=== PATIENT | male | born 1995 ===

== ENCOUNTER 2018-07-18 14:59 | Emergency (ER) | payer SELFPAY ==
[2018-07-18] MEDS ORDERED: KETOROLAC 30 MG/ML INJ ONE (16:06)
--- NOTE | 2018-07-18 16:47 | RAD REPORT ---
EXAM DESCRIPTION: Ribs Right - 07/18/2018 4:15 pm CLINICAL HISTORY: Blunt force trauma, right-sided rib pain COMPARISON: None. FINDINGS: No displaced rib fracture is evident. No nondisplaced rib fractures confirmed. No aggressi ve rib lesion. No underlying pneumothorax, effusion, infiltrate or pulmonary contusion. IMPRESSION: Negative right rib series.
--- NOTE | 2018-07-18 17:32 | ER ---
Nurse's Notes [facility] Name: Brody Cohn Age: 22 yrs Sex: Male : 1995 Arrival Date: 07/18/2018 Time: 15:02 Bed 14 Private MD: Diagnosis: Contusion of right front wall of thorax Presentation: 07/18 15:27 Presenting complaint: Patient states: "I went to go hop on the tailgate of a truck and aj1 I didn't make it and I fell onto my right side on my ribs" Reports that the truck was not moving, reports that he was running and went to jump and missed. Respirations even and unlabored, no distress noted. Transition of care: patient was not received from another setting of care. Onset of symptoms was July 18, 2018 at 15:00. Risk Assessment: Do you want to hurt yourself or someone else? Patient reports no desire to harm self or others. Initial Sepsis Screen: Does the patient meet any 2 criteria? No. Patient's initial sepsis screen is negative. Does the patient have a suspected source of infection? No. Patient's initial sepsis screen is negative. Care prior to arrival: None. 15:27 Method Of Arrival: Ambulatory aj1 15:27 Acuity: DAYDAY 4 aj1 Triage Assessment: 15:28 General: Appears in no apparent distress. comfortable, Behavior is calm, cooperative, aj1 appropriate for age. Pain: Complains of pain in right lateral anterior chest Pain currently is 5 out of 10 on a pain scale. Aggravated by deep breathing, moving. Neuro: Level of Consciousness is awake, alert, obeys commands, Oriented to person, place, time, situation. Cardiovascular: Patient's skin is warm and dry. Respiratory: Airway is patent Respiratory effort is even, unlabored, Respiratory pattern is regular, symmetrical. Historical: - Allergies: 15:28 No Known Allergies; aj1 - Home Meds: 15:28 None [Active]; aj1 - PMHx: 15:28 None; aj1 - PSHx: 15:28 None; aj1 - Immunization history:: Flu vaccine is not up to date. - Social history:: Smoking status: Patient uses tobacco products, smokes one pack cigarettes per day. - Ebola Screening: : Patient denies travel to an Ebola-affected area in the 21 days before illness onset. Screenin:35 Nutritional screening: No deficits noted. Tuberculosis screening: No symptoms or risk rb1 factors identified. Fall Risk Fall in past 12 months (25 points). No secondary diagnosis (0 pts). No IV (0 pts). Ambulatory Aid- None/Bed Rest/Nurse Assist (0 pts). Gait- Normal/Bed Rest/Wheelchair (0 pts) Mental Status- Oriented to own ability (0 pts). Total Nugent Fall Scale indicates Low Risk Score (25-44 pts). Fall prevention measures have been instituted. Side Rails Up X 2 Placed close to Nursing Station 1:1 attendant Assigned to Pt. Frequent Obs/Assesments occuring As available Patient and Family Educated on Fall Prevention Program and strategies. 15:35 Abuse screen: Denies threats or abuse. rb1 Assessment: 15:35 General: Appears uncomfortable, slender, Behavior is calm, cooperative. Neuro: Level of rb1 Consciousness is awake, alert, obeys commands, Oriented to person, place, time, situation. Cardiovascular: Capillary refill < 3 seconds is brisk in bilateral fingers. Respiratory: Airway is patent Respiratory effort is even, unlabored, Respiratory pattern is regular, symmetrical. GI: No signs and/or symptoms were reported involving the gastrointestinal system. : No signs and/or symptoms were reported regarding the genitourinary system. Derm: Skin is dry, Skin is normal, Skin temperature is warm. Musculoskeletal: Range of motion: intact in all extremities. 15:35 Pain: Complains of pain in ribs on the right Pain currently is 10 out of 10 on a pain rb1 scale. 16:30 Reassessment: Patient appears in no apparent distress at this time. Patient and/or rb1 family updated on plan of care and expected duration. Pain level reassessed. Patient is alert, oriented x 3, equal unlabored respirations, skin warm/dry/pink. 17:25 Reassessment: Patient appears in no apparent distress at this time. No changes from rb1 previously documented assessment. Vital Signs: 15:28 BP 133 / 90; Pulse 79; Resp 18; Temp 98.5; Pulse Ox 100% on R/A; Weight 68.04 kg (R); aj1 Height 6 ft. 0 in. (182.88 cm) (R); Pain 5/10; 16:27 BP 138 / 88; Pulse 62; Resp 16; Pulse Ox 100% on R/A; rb1 17:15 BP 124 / 85; Pulse 64; Resp 13; Pulse Ox 100% on R/A; rb1 15:28 Body Mass Index 20.34 (68.04 kg, 182.88 cm) [facility] ED Course: 15:02 Patient arrived in ED. mr 15:28 Triage completed. aj1 15:28 Arm band placed on Patient placed in an exam room. aj1 15:35 Patient has correct armband on for positive identification. Placed in gown. Bed in low rb1 position. Call light in reach. Side rails up X 1. Pulse ox on. NIBP on. 15:41 Uli Rivera NP is PHCP. pm1 15:41 Ronan Norris MD is Attending Physician. pm1 15:45 Cally Tran, RN is Primary Nurse. rb1 16:15 Ribs Right XRAY In Process Unspecified. EDMS 17:52 No provider procedures requiring assistance completed. Patient did not have IV access rb1 during this emergency room visit. Administered Medications: 15:57 Drug: TORadol 60 mg Route: IM; Site: right deltoid; rv 16:11 Follow up: Response: No adverse reaction; Pain is decreased rb1 Outcome: 17:32 Discharge ordered by MD. pm1 17:52 Patient left the ED. rb1 17:52 Discharged to home ambulatory. rb1 17:52 Condition: stable 17:52 Discharge instructions given to patient, Instructed on discharge instructions, follow up and referral plans. medication usage, Demonstrated understanding of instructions, follow-up care, medications, Prescriptions given X 1. Signatures: Dispatcher [employer] EDKY Ashanti Bronson RN RN aj1 StephenDeb mr Cally Tran, MERCEDES RN rb1 Uli Rivera NP EMERGENCY VEHICLE OPERATOR pm1 Micky Erazo RN RN rv
--- NOTE | 2018-07-18 17:33 | EDPHYS ---
Physician Documentation [facility] Name: Brody Cohn Age: 22 yrs Sex: Male : 1995 Arrival Date: 07/18/2018 Time: 15:02 Bed 14 Private MD: ED Physician Ronan Norris HPI: 07/18 17:00 This 22 yrs old Male presents to ER via Ambulatory with complaints of Fall Injury, pm1 Right rib pain. 17:00 Details of fall: The patient fell from an upright position, while jumping, and struck pm1 tailgate of truck. Onset: The symptoms/episode began/occurred this morning. Associated injuries: The patient sustained right lateral anterior chest. Severity of symptoms: in the emergency department the symptoms are unchanged. The patient has not experienced similar symptoms in the past. The patient has not recently seen a physician. Patient was jumping into the truck bed of his pickup truck and his pants were too tight so he did not get as high in the air as he expected. 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 No headache, head injury, neck pain, LOC. No shortness of breath. Patient reports pain with deep breathing. Historical: - Allergies: 15:28 No Known Allergies; aj1 - Home Meds: 15:28 None [Active]; aj1 - PMHx: 15:28 None; aj1 - PSHx: 15:28 None; aj1 - Immunization history:: Flu vaccine is not up to date. - Social history:: Smoking status: Patient uses tobacco products, smokes one pack cigarettes per day. - Ebola Screening: : Patient denies travel to an Ebola-affected area in the 21 days before illness onset. ROS: 17:00 Constitutional: Negative for fever, chills, and weight loss, Eyes: Negative for injury, pm1 pain, redness, and discharge, ENT: Negative for injury, pain, and discharge, Neck: Negative for injury, pain, and swelling, Cardiovascular: Negative for chest pain, palpitations, and edema. 17:00 Abdomen/GI: Negative for abdominal pain, nausea, vomiting, diarrhea, and constipation, Back: Negative for injury and pain, : Negative for injury, bleeding, discharge, and swelling, MS/Extremity: Negative for injury and deformity, Skin: Negative for injury, rash, and discoloration, Neuro: Negative for headache, weakness, numbness, tingling, and seizure. 17:00 Respiratory: Negative for cough, shortness of breath, sputum production, wheezing. Exam: 17:00 Constitutional: This is a well developed, well nourished patient who is awake, alert, pm1 and in no acute distress. Head/Face: Normocephalic, atraumatic. Eyes: Pupils equal round and reactive to light, extra-ocular motions intact. Lids and lashes normal. Conjunctiva and sclera are non-icteric and not injected. Cornea within normal limits. Periorbital areas with no swelling, redness, or edema. ENT: Nares patent. No nasal discharge, no septal abnormalities noted. Tympanic membranes are normal and external auditory canals are clear. Oropharynx with no redness, swelling, or masses, exudates, or evidence of obstruction, uvula midline. Mucous membranes moist. Neck: Trachea midline, no thyromegaly or masses palpated, and no cervical lymphadenopathy. Supple, full range of motion without nuchal rigidity, or vertebral point tenderness. No Meningismus. Cardiovascular: Regular rate and rhythm with a normal S1 and S2. No gallops, murmurs, or rubs. Normal PMI, no JVD. No pulse deficits. 17:00 Respiratory: Lungs have equal breath sounds bilaterally, clear to auscultation and percussion. No rales, rhonchi or wheezes noted. No increased work of breathing, no retractions or nasal flaring. Abdomen/GI: Soft, non-tender, with normal bowel sounds. No distension or tympany. No guarding or rebound. No evidence of tenderness throughout. Back: No spinal tenderness. No costovertebral tenderness. Full range of motion. Skin: Warm, dry with normal turgor. Normal color with no rashes, no lesions, and no evidence of cellulitis. MS/ Extremity: Pulses equal, no cyanosis. Neurovascular intact. Full, normal range of motion. 17:00 Chest/axilla: Inspection: normal, Palpation: crepitus, is not appreciated, tenderness, that totally reproduces the patient's complaints, a single focal point area of tenderness at right lateral lower rib. 17:00 Neuro: Orientation: is normal, Motor: is normal, moves all fours, Gait: is steady, at a normal pace, without difficulty. Vital Signs: 15:28 BP 133 / 90; Pulse 79; Resp 18; Temp 98.5; Pulse Ox 100% on R/A; Weight 68.04 kg (R); aj1 Height 6 ft. 0 in. (182.88 cm) (R); Pain 5/10; 16:27 BP 138 / 88; Pulse 62; Resp 16; Pulse Ox 100% on R/A; rb1 17:15 BP 124 / 85; Pulse 64; Resp 13; Pulse Ox 100% on R/A; rb1 15:28 Body Mass Index 20.34 (68.04 kg, 182.88 cm) aj1 MDM: 15:49 Patient medically screened. pm1 17:31 Data reviewed: vital signs. Data interpreted: Pulse oximetry: on room air is 100 %. pm1 Interpretation: normal. Counseling: I had a detailed discussion with the patient and/or guardian regarding: the historical points, exam findings, and any diagnostic results supporting the discharge/admit diagnosis, radiology results, the need for outpatient follow up, to return to the emergency department if symptoms worsen or persist or if there are any questions or concerns that arise at home. 07/18 15:48 Order name: Ribs Right XRAY; Complete Time: 16:51 pm1 Administered Medications: 15:57 Drug: TORadol 60 mg Route: IM; Site: right deltoid; rv 16:11 Follow up: Response: No adverse reaction; Pain is decreased rb1 Disposition: 18:35 Co-signature as Attending Physician, Ronan Norris MD I agree with the assessment and kdr plan of care. Disposition: 07/18/18 17:32 Discharged to Home. Impression: Contusion of right front wall of thorax. - Condition is Stable. - Discharge Instructions: Rib Contusion. - Prescriptions for Diclofenac Sodium 75 mg Oral Tablet Sustained Release - take 1 tablet by ORAL route 2 times per day; 30 tablet. - Medication Reconciliation Form, Thank You Letter, Antibiotic Education, Prescription Opioid Use form. - Follow up: Emergency Department; When: As needed; Reason: Worsening of condition. Follow up: Private Physician; When: 2 - 3 days; Reason: Recheck today's complaints, Continuance of care, Re-evaluation by your physician. - Problem is new. - Symptoms have improved. Signatures: Dispatcher [employer] EDUT Ashanti Bronson RN RN aj1 Ronan Norris MD MD kdr Barber, Rebecca RN RN rb1 Uli Rivera, GRINDER MACHINE KNIFE SETTER GRINDER MACHINE KNIFE SETTER pm1 Micky Erazo RN RN rv Corrections: (The following items were deleted from the chart) 16:12 15:49 Chest Single View+RAD.RAD.BRZ ordered. [facility] EDUT 17:52 17:32 07/18/2018 17:32 Discharged to Home. Impression: Contusion of right front wall of rb1 thorax. Condition is Stable. Forms are Medication Reconciliation Form, Thank You Letter, Antibiotic Education, Prescription Opioid Use. Follow up: Emergency Department; When: As needed; Reason: Worsening of condition. Follow up: Private Physician; When: 2 - 3 days; Reason: Recheck today's complaints, Continuance of care, Re-evaluation by your physician. Problem is new. Symptoms have improved. pm1
== END 2018-07-18 17:52 | disposition home or self-care (01) ==
LOC: ER 14:59
DX: S20.211A Contusion of right front wall of thorax, initial encounter (principal); W22.8XXA Striking against or struck by other objects, initial encounter; F17.210 Nicotine dependence, cigarettes, uncomplicated
CPT/HCPCS: 96372; 99284